=== PATIENT | female | born 1950 | race Caucasian/White ===

== ENCOUNTER 2016-06-14 13:19 | Inpatient (IN) | payer SELFPAY ==
[~2016-06-14] VITALS: Ht 165.1 cm; Wt 51.7 kg
[~2016-06-14 13:19] MED LIST: ASPI325T2 PO; ATOR10TA PO
[2016-06-14 13:48] LABS: BASOPHILS # (AUTO) 0.1 /CMM (0.0-0.2); BASOPHILS % (AUTO) 1.9 % (0.0-2.0); DIFF TOTAL % 100 %; EOSINOPHILS % (AUTO) 0.8 % (0.0-6.0); HEMATOCRIT 41 % (33-45); HEMOGLOBIN 13.5 g/dL (11.5-14.8); LYMPHOCYTES # (AUTO) 1.2 /CMM (0.8-4.8); LYMPHOCYTES % (AUTO) 27.2 % (20.0-44.0); MEAN CORPUSCULAR HEMOGLOBIN 33 PG (26.0-33.0); MEAN CORPUSCULAR HGB CONC 33 g/dl (31.0-36.0); MEAN CORPUSCULAR VOLUME 102 fL (82-100); MONOCYTES # (AUTO) 0.2 /CMM (0.1-1.30); NEUTROPHILS % (AUTO) 65.1 % (43.0-81.0); PLATELET COUNT (AUTO) 204 /CMM (150-450); RED BLOOD CELL COUNT(AUTO) 4.05 MIL/uL (4.0-5.2); WHITE BLOOD COUNT (AUTO) 4.5 K/uL (4.3-11.0)
[2016-06-14 14:08] LABS: ALANINE AMINOTRANSFERASE 33 U/L (12-78); ALBUMIN 4.1 g/dL (3.4-5.0); ANION GAP 14 (5-14); ASPARTATE AMINOTRANSFERASE 33 U/L (15-37); BILIRUBIN,DIRECT 0.1 mg/dL (0.0-0.2); BILIRUBIN,TOTAL 0.3 mg/dL (0.2-1.0); CALCIUM, SERUM 8.6 mg/dL (8.5-10.1); CARBON DIOXIDE 28 mmol/L (21-32); CHLORIDE 106 mmol/L (98-107); CREATININE 0.6 mg/dL (0.6-1.3); GFR 101 mL/min (>60); GLUCOSE 96 mg/dL (74-106); INDIRECT BILIRUBIN 0.2 mg/dL (0.0-1.1); INR 0.96 (0.87-1.13); POTASSIUM 3.9 mmol/L (3.5-5.1); PROTHROMBIN TIME 10.1 SECS (9.5-12.7); SODIUM SERUM 144 mmol/L (136-145); TOTAL PROTEIN, SERUM 7.2 g/dL (6.4-8.2); UREA NITROGEN, BLOOD 11 mg/dL (7-18)
[2016-06-14 14:10] LABS: TROPONIN I < 0.017 ng/mL (0.00-0.056)
[2016-06-14] MEDS ORDERED: ASPIRIN 325 MG TABLET ONE (15:29)
[2016-06-14] MEDS ORDERED: ASPIRIN EC 325 MG TABLET.DR PO ONE (15:30)
[2016-06-14 17:00] VITALS: BP 161/87
[2016-06-14] MEDS ORDERED: HYDROCODONE/APAP 5/325MG 1 EACH TABLET PO PRN (17:30)
[2016-06-14] MEDS ORDERED: ZOLPIDEM TARTRATE 5 MG TABLET PO PRN (17:30)
[2016-06-14] MEDS ORDERED: Z GUARD REMEDY 2 OZ OINT TP PRN (17:30)
[2016-06-14] MEDS ORDERED: MAGNESIUM HYDROXIDE 30 ML UDC PO PRN (17:30)
[2016-06-14] MEDS ORDERED: ACETAMINOPHEN 325 MG TABLET PO PRN (17:30)
[2016-06-14] MEDS ORDERED: ONDANSETRON HCL/PF 4 MG/2 ML VIAL IVP PRN (17:30)
[2016-06-14] MEDS ORDERED: MAG HYDROX/AL HYDROX/SIMETH 30 ML UDC PO PRN (17:30)
[2016-06-14] MEDS: ENOXAPARIN SODIUM 40 MG/0.4 ML DISP.SYRIN SQ SCH (17:42)
[2016-06-14] MEDS ORDERED: IV SET PRIMARY PUMP SET 1 EA INFUS.SET MC ONE (17:44)
[2016-06-14] MEDS: IV NS 0.9% 1,000 ML IV PRN (17:47)
[2016-06-14 20:00] VITALS: BP 148/78
[2016-06-15] VITALS (9 sets, daily range): BP systolic 122–167; BP diastolic 70–101
[2016-06-15] MEDS: IV NS 0.9% 1,000 ML IV PRN (07:53)
[2016-06-15] MEDS: PANTOPRAZOLE 40 MG TABLET.DR PO SCH (07:54)
[2016-06-15 08:41] LABS: CALCIUM, SERUM 8.2 mg/dL (8.5-10.1); CREATININE 0.6 mg/dL (0.6-1.3); PHOSPHORUS 3.9 mg/dL (2.5-4.9); POTASSIUM 3.3 mmol/L (3.5-5.1)
[2016-06-15 09:24] LABS: BASOPHILS % (AUTO) 0.5 % (0.0-2.0); DIFF TOTAL % 100 %; EOSINOPHILS # (AUTO) 0.1 /CMM (0.0-0.7); EOSINOPHILS % (AUTO) 2.2 % (0.0-6.0); HEMATOCRIT 37 % (33-45); HEMOGLOBIN 12.7 g/dL (11.5-14.8); LYMPHOCYTES # (AUTO) 1.6 /CMM (0.8-4.8); LYMPHOCYTES % (AUTO) 39.6 % (20.0-44.0); MEAN CORPUSCULAR HEMOGLOBIN 34 PG (26.0-33.0); MEAN CORPUSCULAR HGB CONC 34 g/dl (31.0-36.0); MEAN CORPUSCULAR VOLUME 100 fL (82-100); MONOCYTES # (AUTO) 0.4 /CMM (0.1-1.30); MONOCYTES % (AUTO) 8.9 % (2.0-12.0); NEUTROPHILS % (AUTO) 48.8 % (43.0-81.0); PLATELET COUNT (AUTO) 192 /CMM (150-450); RED BLOOD CELL COUNT(AUTO) 3.72 MIL/uL (4.0-5.2); WHITE BLOOD COUNT (AUTO) 4.1 K/uL (4.3-11.0)
[2016-06-15] MEDS ORDERED: POTASSIUM CHLORIDE 20 MEQ TAB.PRT.SR PO SCH (10:00)
[2016-06-15] MEDS ORDERED: SECONDARY IV SET 1 EA INFUS.SET MC ONE (10:25)
[2016-06-15] MEDS: Magnesium 1GM/D5W 100ML PREMIX 100 ML IV SCH ×2 (10:29→11:53)
[2016-06-15 14:25] LABS: CHOLESTEROL 152 mg/dL (<200); HDL CHOLESTEROL 57 mg/dL (40-60); LDL 75 mg/dL (0-99); TRIGLYCERIDES 77 mg/dL (30-150)
[2016-06-15] MEDS ORDERED: ASPIRIN EC 325 MG TABLET.DR PO SCH (15:00)
[2016-06-15] MEDS: NICOTINE PATCH (21MG) 21 MG PATCH.TD24 TD SCH (15:12)
[2016-06-15] MEDS: ASPIRIN EC 81 MG TABLET.DR PO SCH (15:12)
[2016-06-15] MEDS: LISINOPRIL (20MG) 20 MG TABLET PO SCH (16:17)
[2016-06-15] MEDS: ATORVASTATIN 10 MG TABLET PO SCH (21:05)
[2016-06-15] MEDS: ENOXAPARIN SODIUM 40 MG/0.4 ML DISP.SYRIN SQ SCH (21:07)
[2016-06-16] MEDS: IV NS 0.9% 1,000 ML IV PRN (01:17)
[2016-06-16 06:40] VITALS: BP 123/71
[2016-06-16 06:41] VITALS: BP 150/97
[2016-06-16 06:43] VITALS: BP 120/85
[2016-06-16 07:07] LABS: BASOPHILS % (AUTO) 0.8 % (0.0-2.0); DIFF TOTAL % 100 %; EOSINOPHILS # (AUTO) 0.1 /CMM (0.0-0.7); EOSINOPHILS % (AUTO) 2.3 % (0.0-6.0); HEMATOCRIT 35 % (33-45); HEMOGLOBIN 12.1 g/dL (11.5-14.8); LYMPHOCYTES # (AUTO) 1.6 /CMM (0.8-4.8); LYMPHOCYTES % (AUTO) 40.3 % (20.0-44.0); MEAN CORPUSCULAR HEMOGLOBIN 34 PG (26.0-33.0); MEAN CORPUSCULAR HGB CONC 34 g/dl (31.0-36.0); MEAN CORPUSCULAR VOLUME 100 fL (82-100); MONOCYTES # (AUTO) 0.4 /CMM (0.1-1.30); MONOCYTES % (AUTO) 9.1 % (2.0-12.0); NEUTROPHILS # (AUTO) 1.9 /CMM (1.8-8.9); NEUTROPHILS % (AUTO) 47.5 % (43.0-81.0); PLATELET COUNT (AUTO) 171 /CMM (150-450); RED BLOOD CELL COUNT(AUTO) 3.53 MIL/uL (4.0-5.2)
[2016-06-16 07:23] LABS: CREATININE 0.6 mg/dL (0.6-1.3); PHOSPHORUS 3.5 mg/dL (2.5-4.9); POTASSIUM 3.8 mmol/L (3.5-5.1)
[2016-06-16 08:00] VITALS: BP 137/72
[2016-06-16] MEDS: PANTOPRAZOLE 40 MG TABLET.DR PO SCH (10:10)
[2016-06-16] MEDS: ASPIRIN EC 81 MG TABLET.DR PO SCH (10:10)
[2016-06-16] MEDS: NICOTINE PATCH (21MG) 21 MG PATCH.TD24 TD SCH (10:10)
[2016-06-16] MEDS: LISINOPRIL (20MG) 20 MG TABLET PO SCH (10:11)
[2016-06-16] MEDS ORDERED: SECONDARY IV SET 1 EA INFUS.SET MC ONE (11:40)
[2016-06-16] MEDS: Magnesium 1GM/D5W 100ML PREMIX 100 ML IV SCH ×2 (11:41→13:01)
[2016-06-16 16:00] VITALS: BP 138/75
[2016-06-16 20:00] VITALS: BP 130/81
[2016-06-16] MEDS: ATORVASTATIN 10 MG TABLET PO SCH (21:19)
[2016-06-16] MEDS: ENOXAPARIN SODIUM 40 MG/0.4 ML DISP.SYRIN SQ SCH (21:20)
[2016-06-17] MEDS: IV NS 0.9% 1,000 ML IV PRN (06:03)
[2016-06-17 06:43] VITALS: BP_SYST 107; BP_SYST 128; BP_SYST 132; BP_DIAS 72; BP_DIAS 78; BP_DIAS 83
[2016-06-17 08:00] VITALS: BP 144/85
[2016-06-17 08:02] LABS: CALCIUM, SERUM 8.4 mg/dL (8.5-10.1); CREATININE 0.6 mg/dL (0.6-1.3); POTASSIUM 3.7 mmol/L (3.5-5.1)
[2016-06-17] MEDS: PANTOPRAZOLE 40 MG TABLET.DR PO SCH (08:18)
[2016-06-17] MEDS: NICOTINE PATCH (21MG) 21 MG PATCH.TD24 TD SCH (08:18)
[2016-06-17] MEDS: ASPIRIN EC 81 MG TABLET.DR PO SCH (08:18)
[2016-06-17] MEDS: LISINOPRIL (20MG) 20 MG TABLET PO SCH (09:15)
[2016-06-17] MEDS: Magnesium 1GM/D5W 100ML PREMIX 100 ML IV SCH ×2 (12:40→13:54)
[2016-06-17 16:00] VITALS: BP 155/80
[2016-06-17] MEDS ORDERED: ATOR10TA PO (18:48)
== END 2016-06-17 19:20 | disposition home or self-care (01) | DRG 73 ==
LOC: ER 13:20 → TELE 16:30 → MED 06-15 08:54
PROVIDERS: ADMIT Internal Medicine; ATTEND Internal Medicine
DX: G90.8 Other disorders of autonomic nervous system (principal); I50.21 Acute systolic (congestive) heart failure; E44.1 Mild protein-calorie malnutrition; I69.354 Hemiplegia and hemiparesis following cerebral infarction affecting left non-dominant side; R55 Syncope and collapse; I69.392 Facial weakness following cerebral infarction; R26.0 Ataxic gait; I25.10 Atherosclerotic heart disease of native coronary artery without angina pectoris; E78.5 Hyperlipidemia, unspecified; K21.9 Gastro-esophageal reflux disease without esophagitis; F17.210 Nicotine dependence, cigarettes, uncomplicated; I11.0 Hypertensive heart disease with heart failure; Z68.20 Body mass index [BMI] 20.0-20.9, adult; I67.2 Cerebral atherosclerosis; K57.90 Diverticulosis of intestine, part unspecified, without perforation or abscess without bleeding
CPT/HCPCS: 36415; 70450-TC; 71010-TC; 80048-TC; 80061-TC; 80076-TC; 83735-TC; 84100-TC; 84484-TC; 85025-TC; 85730-TC; 86850-TC; 86901; 87081-TC; 95819-TC; 97001-TC; A4606; G6040-TC; J1650; J3475; J7030; Z7610